=== PATIENT | male | born 1965 | race Caucasian/White ===

== ENCOUNTER 2017-06-02 12:21 | Emergency (ER) | payer OTHER ==
[~2017-06-02] VITALS: Ht 177.8 cm; Wt 85.0 kg
[2017-06-02] MEDS ORDERED: METF10002 PO (12:42)
[2017-06-02] MEDS ORDERED: ONDANSETRON 2MG/ML, 2ML IVPush ONE (13:00)
[2017-06-02] MEDS ORDERED: SODIUM CHLORIDE 0.9% 1,000ML IVBOLUS ONE (13:00)
[2017-06-02] MEDS ORDERED: SODIUM CHLORIDE FLUSH 10ML SYR IVF ONE (13:00)
[2017-06-02] MEDS ORDERED: MORPHINE SULFATE 4 MG/ML, 1ML ONE ×2 (13:10→15:33)
[2017-06-02] MEDS ORDERED: ONDANSETRON 2MG/ML, 2ML ONE (13:10)
[2017-06-02] MEDS: MORPHINE SULFATE 4 MG/ML, 1ML IVPush PRN ×2 (13:12→15:44)
[2017-06-02 13:43] LABS: ASPARTATE AMINO TRANSFERASE 10 U/L (15-37); BLOOD UREA NITROGEN 11 mg/dL (7-18)
[2017-06-02 14:39] LABS: HEMATOCRIT 44.5 % (39.2-51.8); HEMOGLOBIN 14.7 g/dL (13.7-18.0); WHITE BLOOD COUNT 5.9 x10^3/uL (3.4-10)
[2017-06-02 16:36] VITALS: BP 148/97
== END 2017-06-02 16:38 | disposition home or self-care (01) ==
LOC: ED 15:24
DX: M86.68 Other chronic osteomyelitis, other site (principal); G89.29 Other chronic pain
CPT/HCPCS: 36415; 80053; 83605; 84145; 85025; 85651; 86141; 87040; 99284; J2405; J7030